=== PATIENT | female | born 1980 | race Caucasian/White ===

== ENCOUNTER 2018-04-17 11:20 | Observation (INO) ==
[2018-04-17 12:38] LABS: Basophils # 0.1 K/mm3 (0-0.2); Basophils % 0.8 % (0.1-2.0); Eosinophils # 0.1 K/mm3 (0.0-0.4); Eosinophils % 1.4 % (0.1-12.0); Hemoglobin 12.4 g/dL (12.2-16.2); Lymphocytes # 1.2 K/mm3 (0.7-4.5); Lymphocytes % 13.4 K/mm3 (10-50); Mean Corpuscular HGB Conc 33.4 g/dL (31.8-35.4); Mean Corpuscular Hemoglobin 30.1 pg (27.0-31.2); Mean Corpuscular Volume 90.1 fl (81-99); Mean Platelet Volume 7.1 fl (7.4-10.4); Monocytes # 0.7 K/mm3 (0.1-1.0); Monocytes % 7.7 % (1.7-9.3); Neutrophils # 6.9 K/mm3 (1.8-7.8); Neutrophils % 76.6 % (37.0-80.0); Platelet Count 267 K/mm3 (142-424); Red Cell Distribution Width 13.9 % (11.5-17.5)
[2018-04-17 12:48] LABS: Albumin Level 2.5 gm/dL (3.4-5.0); Albumin/Globulin Ratio 0.5 (1.1-1.8); Anion Gap 11.9 mEq/L (5-15); Bilirubin,Total 0.7 mg/dL (0.2-1.0); Calcium 8.9 mg/dL (8.5-10.1); Potassium 4.9 mmoL/L (3.5-5.1); Total Protein,Serum 7.5 gm/dL (6.4-8.2)
--- NOTE | 2018-04-17 15:18 | Emergency Department Note ---
ED Disposition Clinical Impression: Metastatic breast cancer Nausea & vomiting Qualifiers: Vomiting type: unspecified Vomiting Intractability: intractable Qualified Code(s): R11.2 - Nausea with vomiting, unspecified Disposition: Admitted as Observation Condition on Discharge: Good - Critical Care Critical Care Time: No Attestation: On 04/17/18, the high probability of a clinically significant, sudden or life threatening deterioration of the following system(s) required my full and direct attention, intervention and personal management. The time I documented below is in addition to time spent performing reported procedures but includes the following listed in this critical care notation. Medical Decision Making - Medical Records Medical records reviewed: Yes: I reviewed the patient's medical records. - Luis A Inquiry Pt receiving controlled substance: No Vital Signs: 04/17/18 11:28 04/17/18 11:36 04/17/18 12:07 Temperature 97.8 F 97.8 F 98.2 F Temperature Source Oral Oral Oral Pulse Rate [Left Radial] 110 H 110 H 78 Respiratory Rate 20 20 17 Blood Pressure [Right Arm] 119/70 119/70 133/56 L Blood Pressure Mean [Right Arm] 86 86 81 Blood Pressure Source [Right Arm] Automatic Cuff Automatic Cuff Automatic Cuff Blood Pressure Position [Right Arm] Sitting Sitting Sitting 02 Sat by Pulse Oximetry 100 100 98 Oxygen Delivery Method Nasal Cannula Nasal Cannula Room Air Oxygen Flow Rate (LPM) 2 2 04/17/18 13:30 04/17/18 14:27 Temperature Temperature Source Pulse Rate [Left Radial] 93 H 108 H Respiratory Rate Blood Pressure [Right Arm] 115/70 140/70 Blood Pressure Mean [Right Arm] 85 93 Blood Pressure Source [Right Arm] Automatic Cuff Automatic Cuff Blood Pressure Position [Right Arm] Sitting Sitting 02 Sat by Pulse Oximetry 99 94 L Oxygen Delivery Method Nasal Cannula Nasal Cannula Oxygen Flow Rate (LPM) - Lab Data Lab results reviewed: Yes: I reviewed the patient's lab results. Lab Results 04/17/18 12:17: WBC 9.0, RBC 4.10 L, Hgb 12.4, Hct 37.0, MCV 90.1, MCH 30.1, MCHC 33.4, RDW 13.9, Plt Count 267, MPV 7.1 L, Neut % (Auto) 76.6, Lymph % (Auto) 13.4, [place] % (Auto) 7.7, Eos % (Auto) 1.4, Baso % (Auto) 0.8, Neut # (Auto) 6.9, Lymph # (Auto) 1.2, [place] # (Auto) 0.7, Eos # (Auto) 0.1, Baso # (Auto) 0.1 04/17/18 12:17: Sodium 133 L, Potassium 4.9, Chloride 98, Carbon Dioxide 28, Anion Gap 11.9, BUN 13, Creatinine 0.84, Estimated Creat Clear 95, Estimated GFR 76, Est GFR ( Amer) 92, Glucose 91, Calcium 8.9, Total Bilirubin 0.7, AST 143 H, ALT 52, Alkaline Phosphatase 1554 H, Total Protein 7.5, Albumin 2.5 L, Globulin 5.0 H, Albumin/Globulin Ratio 0.5 L, Amylase 35, Lipase 115 Result diagrams: 04/17/18 12:17 04/17/18 12:17 Orders (Tests/Meds): ED MEDICATIONS Discontinued Medications Generic Name Dose Route Start Last Admin Trade Name Noéq PRN Reason Stop Dose Admin Sodium Chloride 1,000 mls @ 999 mls/hr 04/17/18 12:30 04/17/18 12:32 Sod Chlor 0.9% 1000ml Bag IV 04/17/18 13:30 999 mls/hr .Q1H1M BHARGAVI Administration Ondansetron HCl 4 mg 04/17/18 12:32 04/17/18 12:33 Zofran 4mg/2ml Vial IV 04/17/18 12:33 4 mg ONCE ONE Administration Nausea/Vomiting/Diarrhea HPI - General Chief complaint: Nausea/Vomiting/Diarrhea Stated complaint: Nausea, History of cancer Time Seen by Provider: 04/17/18 12:00 Mode of Arrival: Wheelchair Source of Information: Patient, Medical Record Limitations: Physical Limitations Description of Symptoms (Recalled from ER Triage Doc. by RN): nausea and vomiting,nos - History of Present Illness HPI Narrative: pt with progressive vomiting and dec po intake with hx of metastatic breast cancer - she has used home meds and treated in ed but has continued sx complaint: vomiting Onset (ago): day(s) Associated Abdominal Pain: No Severity: moderate Context: other (metastatic cancer ) Associated symptoms: nausea/vomiting - Related Data Home Medications Medication Instructions Recorded Confirmed No Known Home Medications 04/17/18 04/17/18 Allergies Allergy/AdvReac Type Severity Reaction Status Date / Time No Known Allergies Allergy Verified 03/07/18 10:20 [facility] History I have reviewed the patient's past medical history: Yes Medical History: Reports:: Cancer (STAGE 4. METASTATIC BREAST CANCER) Denies:: Diabetes Mellitus Type 1, Diabetes Mellitus Type 2, Gastrointestinal Bleed, Hypertension, Internal Pacemaker, MRSA, Renal Disease, Ulcer Other Surgeries: Yes: No Previous Surgery. No: Pacemaker Amputation: No Fractures: No - Social History Smoking Status: Current some day smoker Tobacco Type: cigarettes # Packs/Day (cigarettes): 1 Alcohol Intake: never - Psychiatric History Expresses thoughts of harming self/others: None Suicide Plan Description: No Plan ROS Obtained: Yes All systems reviewed & no additional complaints - Constitutional Constitutional: Denies fever(s) - Eyes Eyes: Denies change in vision - ENT Ears, Nose, Mouth, and Throat: Denies sore throat - Cardiovascular Cardiovascular: Denies chest pain at rest - Respiratory Respiratory: No cough - Gastrointestinal Gastrointestingal: Reports: nausea, vomiting. Denies: abdominal pain, diarrhea - Genitourinary Female Genitourinary: Denies hematuria - Musculoskeletal Musculoskeletal: Reports joint pain, Denies back pain, Denies neck pain - Integumentary/Breasts Skin/Breast: Denies rash - Neurologic Neurologic: Denies seizure-like activity Physical Exam - General General appearance: alert - Head Head exam: normocephalic - Eye Eye exam: Present: PERRL, EOMI - ENT ENT exam: Absent: mucous membranes dry - Neck Neck exam: Absent: trachea midline - Respiratory Respiratory exam: Present: normal lung sounds bilaterally. Absent: respiratory distress - Cardiovascular Cardiovascular exam: Present: regular rate, systolic murmur, +S4 - Abdominal Exam Abdominal exam: Present: soft. Absent: organomegaly - Extremities Exam Extremities exam: Absent: calf tenderness - Neurological Exam Neurological exam: Present: alert, oriented X3, CN II-XII intact - Psychiatric Psychiatric exam: Present: anxious - Skin Skin exam: Absent: rash
[2018-04-18 06:48] LABS: Basophils % 0.6 % (0.1-2.0); Eosinophils # 0.1 K/mm3 (0.0-0.4); Eosinophils % 1.3 % (0.1-12.0); Hematocrit 30.4 % (37.0-47.0); Lymphocytes # 1.1 K/mm3 (0.7-4.5); Lymphocytes % 14.9 K/mm3 (10-50); Mean Corpuscular HGB Conc 33.3 g/dL (31.8-35.4); Mean Corpuscular Hemoglobin 30.1 pg (27.0-31.2); Mean Corpuscular Volume 90.4 fl (81-99); Mean Platelet Volume 8.3 fl (7.4-10.4); Monocytes # 0.6 K/mm3 (0.1-1.0); Monocytes % 7.1 % (1.7-9.3); Neutrophils # 5.8 K/mm3 (1.8-7.8); Neutrophils % 76.1 % (37.0-80.0); Platelet Count 246 K/mm3 (142-424); Red Blood Count 3.36 M/mm3 (4.20-5.40); Red Cell Distribution Width 13.7 % (11.5-17.5); White Blood Count 7.6 K/mm3 (4.8-10.8)
[2018-04-18 06:49] LABS: Anion Gap 11.4 mEq/L (5-15); Potassium 4.4 mmoL/L (3.5-5.1)
--- NOTE | 2018-04-18 07:20 | Pharmacy Consult Notes ---
[facility] Pharmacy VTE Monitoring - Patient Demographics Admission date: 04/17/18 Report Date: 04/18/18 Time: 07:20 Allergies/Adverse Reactions: Patient Allergies No Known Allergies Allergy (Verified 03/07/18 10:20) Height: 1.57 m Weight: 40.625 kg Patient Problems: Current Active Problems Nausea & vomiting (Acute) Metastatic breast cancer (Acute) - VTE Risk Labs: VTE Related Lab Results Hgb 12.4 g/dL (12.2-16.2) 04/17/18 12:17 Hct 30.4 % (37.0-47.0) L 04/18/18 06:07 Plt Count 246 K/mm3 (142-424) 04/18/18 06:07 BUN 13 mg/dL (7-18) 04/17/18 12:17 Creatinine 0.84 mg/dL (0.55-1.02) 04/17/18 12:17 Estimated Creat Clear 95 mL/min (0-300) 04/17/18 12:17 VTE Score: 2 VTE Risk Level: Low Risk - Prophylaxis VTE Prophylaxis Ordered?: Yes Types of VTE Prophylaxis: TEDS Knee High Location of Applied Device: Bilateral Lower Extremeties - VTE Diagnosis Confirmed Treatment or plan recommended: Continue Current Treatment
[2018-04-18 07:27] LABS: Calcium 8.1 mg/dL (8.5-10.1)
[2018-04-18 07:39] LABS: Hemoglobin 10.1 g/dL (12.2-16.2)
--- NOTE | 2018-04-21 13:20 | H&P/Discharge Summary ---
General - General Admission date:: 04/17/18 Discharge date: 04/18/18 *Admission Date: 04/18/18 *Chief complaint: Vomiting *History of present illness: 38-year-old female recently diagnosed with metastatic breast cancer presented to the emergency department with 1-2 days of unrelenting vomiting at home. Patient tells me that by the time she arrived to the emergency department her vomiting had stopped. She underwent evaluation in the emergency department and was admitted for observation and IV fluids with antiemetics. Chest x-ray performed on admission showed changes in the lungs that I believe are consistent with progressive metastatic cancer. Patient's cancer has been diagnosed within the last 3 weeks. She has seen oncology and is scheduled for repeat visit this in hopes to begin palliative chemotherapy soon. She has been able to eat and drink since admission to the floor and has not had any further vomiting. She has received 1 dose of Zofran at midnight [facility] History I have reviewed the patient's past medical history: Yes Medical History: Reports:: Cancer (Metastatic breast cancer) Denies:: Diabetes Mellitus Type 1, Diabetes Mellitus Type 2, Gastrointestinal Bleed, Hypertension, Internal Pacemaker, MRSA, Renal Disease, Ulcer Other Surgeries: Yes: No Previous Surgery. No: Pacemaker Amputation: No Fractures: No - *Social History Educational Level: Completed High School Smoking Status: Former smoker Tobacco Type: cigarettes # Packs/Day (cigarettes): 1 Alcohol Intake: never Occupational Status: unemployed Housing: house Household Members: significant other - Psychiatric History Expresses thoughts of harming self/others: None Suicide Plan Description: No Plan *Family Hx:: Cancer Review of Systems - Review of Systems Review of systems:: pertinent systems reviewed and negative unless documented below - *Cardiovascular Reports chest pain at rest (From sternal metastases), Reports shortness of breath (From lung metastases) - *Gastrointestinal Reports belching, Reports bloating, Reports constipation, Denies abdominal pain - *Neurologic Denies seizure-like activity Exam Vital signs and Labs for Last 24 Hours: Temp Pulse Resp BP Pulse Ox 97.5 F L 101 H 20 112/71 97 04/18/18 04:00 04/18/18 04:00 04/18/18 04:00 04/18/18 04:00 04/18/18 04:00 Laboratory Results - last 24 hr 04/17/18 12:17: WBC 9.0, RBC 4.10 L, Hgb 12.4, Hct 37.0, MCV 90.1, MCH 30.1, MCHC 33.4, RDW 13.9, Plt Count 267, MPV 7.1 L, Neut % (Auto) 76.6, Lymph % (Auto) 13.4, [place] % (Auto) 7.7, Eos % (Auto) 1.4, Baso % (Auto) 0.8, Neut # (Auto) 6.9, Lymph # (Auto) 1.2, [place] # (Auto) 0.7, Eos # (Auto) 0.1, Baso # (Auto) 0.1 04/17/18 12:17: Sodium 133 L, Potassium 4.9, Chloride 98, Carbon Dioxide 28, Anion Gap 11.9, BUN 13, Creatinine 0.84, Estimated Creat Clear 95, Estimated GFR 76, Est GFR ( Amer) 92, Glucose 91, Calcium 8.9, Total Bilirubin 0.7, AST 143 H, ALT 52, Alkaline Phosphatase 1554 H, Total Protein 7.5, Albumin 2.5 L, Globulin 5.0 H, Albumin/Globulin Ratio 0.5 L, Amylase 35, Lipase 115 04/18/18 06:07: WBC 7.6, RBC 3.36 L, Hct 30.4 L, MCV 90.4, MCH 30.1, MCHC 33.3, RDW 13.7, Plt Count 246, MPV 8.3, Neut % (Auto) 76.1, Lymph % (Auto) 14.9, [place] % (Auto) 7.1, Eos % (Auto) 1.3, Baso % (Auto) 0.6, Neut # (Auto) 5.8, Lymph # (Auto) 1.1, [place] # (Auto) 0.6, Eos # (Auto) 0.1, Baso # (Auto) 0.0 I & O for Last 24 hours: Intake & Output 04/15/18 04/16/18 04/17/18 04/18/18 11:59 11:59 11:59 11:59 Intake Total 120 / 120 Output Total 650 / 650 Balance -530 / -530 Weight 100 lb 89 lb 9 oz - Constitutional no acute distress, thin, cachectic, chronically ill appearing, disheveled, cooperative - *Routine HEENT Exam Head: Present: normocephalic Eye: Present: PERRL ENT: Present: mucous membranes moist - *Routine Neck Exam Present: full ROM - *Routine Respiratory Exam Present: wheezes (Right anterior lung). Absent: accessory muscle use, patient mechanically ventilated, decreased breath sounds - *Routine Cardiovascular Exam Present: Normal S1, Normal S2. Absent: murmur - *Routine Abdominal Exam Present: normoactive bowel sounds. Absent: tenderness - *Routine Extremities Exam Present: full ROM Hospital Course Hospital Course: Patient was admitted and placed on IV fluids. She required 1 dose of Zofran at midnight on April 18. She was able to eat and drink. I had a long discussion with the patient regarding her prognosis. Patient is of low intelligence. We discussed treatment of her breast cancer that included palliative chemotherapy as well as hospice. We also discussed her CODE STATUS. Despite my best to explain in simple way with the patient was going through I am not sure she understood. She was discharged home and will follow up with Dr. Kc Patient lives with her boyfriend and his mother. The patient does have a brother. At present she is too active for home health. Results Labs on day of discharge: Labs from last 24 hours 04/18/18 04/17/18 04/17/18 06:07 12:17 12:17 WBC 7.6 9.0 RBC 3.36 L 4.10 L Hgb 12.4 Hct 30.4 L 37.0 MCV 90.4 90.1 MCH 30.1 30.1 MCHC 33.3 33.4 RDW 13.7 13.9 Plt Count 246 267 MPV 8.3 7.1 L Neut % (Auto) 76.1 76.6 Lymph % (Auto) 14.9 13.4 [place] % (Auto) 7.1 7.7 Eos % (Auto) 1.3 1.4 Baso % (Auto) 0.6 0.8 Neut # (Auto) 5.8 6.9 Lymph # (Auto) 1.1 1.2 [place] # (Auto) 0.6 0.7 Eos # (Auto) 0.1 0.1 Baso # (Auto) 0.0 0.1 Sodium 133 L Potassium 4.9 Chloride 98 Carbon Dioxide 28 Anion Gap 11.9 BUN 13 Creatinine 0.84 Estimated Creat Clear 95 Estimated GFR 76 Est GFR ( Amer) 92 Glucose 91 Calcium 8.9 Total Bilirubin 0.7 AST 143 H ALT 52 Alkaline Phosphatase 1554 H Total Protein 7.5 Albumin 2.5 L Globulin 5.0 H Albumin/Globulin Ratio 0.5 L Amylase 35 Lipase 115 DS: Diagnosis - Discharge Diagnosis (1) Metastatic breast cancer Status: Acute (2) Nausea & vomiting Status: Acute Discharge Medications - Medications for Discharge Home Medication List at Discharge: No Action No Known Home Medications Disposition Disposition: Home, Self-Care
== END 2018-04-18 11:54 | disposition home or self-care (01) ==
LOC: 2ND 11:20 → ER 11:20 → 2ND 15:48
PROVIDERS: ADMIT Emergency Medicine; ATTEND Family Medicine

== ENCOUNTER → 2018-04-21 14:59 | Outpatient (CLI) | payer MEDICAID, SELFPAY ==
--- NOTE | 2018-04-21 15:03 | CA_ITS ---
PROCEDURE: 2-D M-mode and color Doppler study INDICATIONS FOR THE TEST: Chest pain COPDX Heart Murmur Tobacco SmokingEX Palpitations Fatigue Syncope Edema Hypertension Diabetes Mellitus Rheumatic Fever SOBXDOEXObesity Hyperlipidemia Family History HD Additional History ADVANCED CA LUNG/BREAST ,LIMITED SECONDARY TO PAIN UNABLE TO POSITION PT OPTIMALLY PATIENT INFORMATION HEIGHT: 62 WEIGHT:89 GENDER: Female B/P:112/71 2-D/M-MODE INTERPRETATION: 2-D MEASUREMENTS OBSERVED VALUES IN CMS Right Ventricular Dimension (RVDd) .6 Interventricular Septum (Thickness)(IVsd) .7 Left Ventricular Internal Dimensions(LVIDd) 4.1 Left Ventricular Posterior Wall (Thickness)(LVPWd) .8 Aortic Root Aortic Cusp Separation Left Atrial Dimensions (LAD) 2D 1. Technically very difficult and limited study. 2. Normal left ventricular size, hyperdynamic left ventricular systolic function, visually estimated ejection fraction was 65% with no regional wall motion abnormality, endocardial surfaces are poorly visualized. 3. The right atrium and right ventricle are relatively normal size and function. 4. The aortic, mitral and tricuspid valvular grossly normal. 5. Pulmonic valve is poorly visualized. 6. There is no significant pericardial effusion noted, there is left-sided pleural effusion seen. DOPPLER INTERROGATION: Interrogation of the aortic, mitral and tricuspid valvular presence of mild mitral and tricuspid regurgitation, diastolic parameters are inconclusive. CONCLUSION:1. Technically very difficult study because of the patient's factor and poor acoustic windows 2. Normal left ventricular size, hyperdynamic left ventricular systolic function, visually estimated ejection fraction of 65% with no regional wall motion abnormality, endocardial surfaces are poorly visualized. 3. Mild mitral and tricuspid regurgitation 4. No significant pericardial effusion noted, there is left-sided pleural effusion seen.
== END ==
PROVIDERS: PCP Family Medicine; Visit Provider Internal Medicine Medical Oncology
DX: C50.911 Malignant neoplasm of unspecified site of right female breast (principal)
CPT/HCPCS: 93306